=== PATIENT | female | born 1990 | race Caucasian/White ===

== ENCOUNTER 2021-06-23 02:16 | Emergency (ER) | payer MEDICAID ==
[~2021-06-23] VITALS: Ht 157.5 cm; Wt 97.5 kg
--- NOTE | 2021-06-23 02:45 | NUR ---
ULTRASOUND PAGED [phone]
--- NOTE | 2021-06-23 02:49 | NUR ---
ULTRASOUND AT BEDSIDE
[2021-06-23 02:50] LABS: CLARITY,URINE SLIGHTLY CLOUDY (Clear); COLOR,URINE YELLOW (Yellow); GLUCOSE, URINE NEGATIVE (Neg); KETONES,URINE NEGATIVE (Neg); LEUKOCYTE ESTERASE ,URINE TRACE (Neg); NITRITES, URINE NEGATIVE (Neg); OCCULT BLOOD,URINE LARGE (Neg); PROTEIN,URINE NEGATIVE (Neg); UROBILINOGEN,URINE 0.2 E.U/dL (0.2-1.0)
[2021-06-23 02:51] LABS: UA COLLECTION TYPE CLN CATCH MIDSTREAM
[2021-06-23 02:55] LABS: BASOPHILS # (AUTO) 0.1 X10'3 (0-0.2); BASOPHILS % (AUTO) 1.1 % (0-1); EOSINOPHILS # (AUTO) 0.4 X10'3 (0-0.9); EOSINOPHILS % (AUTO) 4.6 % (0-6); HEMATOCRIT 43.7 % (35.0-45.0); HEMOGLOBIN 14.9 g/dl (12.0-16.0); LYMPHOCYTES # (AUTO) 3.1 X10'3 (1.1-4.8); LYMPHOCYTES % (AUTO) 31.9 % (21-51); MEAN CORPUSCULAR HEMOGLOBIN 29.7 PG (27.0-31.0); MEAN CORPUSCULAR VOLUME 87.5 FL (78-98); MEAN PLATELET VOLUME 8.3 FL (7.4-10.4); MONOCYTES # (AUTO) 0.7 X10'3 (0-0.9); MONOCYTES % (AUTO) 7.7 % (2-12); NEUTROPHILS # (AUTO) 5.3 X10'3 (1.8-7.7); NEUTROPHILS % (AUTO) 54.7 % (42-75); PLATELET COUNT 293 X10'3 (140-440); RED CELL DISTRIBUTION WIDTH 14.3 % (11.5-14.5); WHITE BLOOD COUNT 9.7 X10'3 (4.5-11.0)
[2021-06-23 03:10] LABS: ALANINE AMINOTRANSFERASE 31 U/L (12-78); ALKALINE PHOSPHATASE 88 IU/L (46-116); ANION GAP 11 (8-16); ASPARTATE AMINO TRANSFERASE 18 U/L (10-37); BILIRUBIN,DIRECT 0.1 MG/DL (0-0.3); BILIRUBIN,TOTAL 0.3 MG/DL (0.1-1.0); BLOOD UREA NITROGEN 22 MG/DL (7-18); BUN/CREATININE RATIO 26.2 (6.6-38.0); CALCIUM 9.3 MG/DL (8.5-10.1); CHLORIDE 103 MMOL/L (99-107); CREATININE 0.84 MG/DL (0.40-0.90); GLUCOSE 123 MG/DL (70-104); LIPASE 226 U/L (73-393); POTASSIUM 3.6 MMOL/L (3.5-5.1); SODIUM 139 MMOL/L (135-145); TOTAL CARBON DIOXIDE 24.6 MMOL/L (24-32); TOTAL PROTEIN 7.9 G/DL (6.4-8.2); eGFR 80 ML/MIN
--- NOTE | 2021-06-23 03:11 | NUR ---
Patient with US
[2021-06-23 03:19] LABS: AMORPHOUS URATES 2+; BACTERIA,URINE 2+ /HPF (Neg); MUCUS STRANDS FEW /LPF (Neg); SQUAMOUS EPITHELIAL CELL,UR MODERATE /LPF (FEW)
[2021-06-23] MEDS ORDERED: NITR100C6 PO (03:27)
[2021-06-23] MEDS ORDERED: nitrofuran/nitrofuran macrocrysal 100 MG capsule PO ONE (03:30)
[2021-06-23 03:31] LABS: URINE HCG NEGATIVE (NEG)
[2021-06-23 03:44] VITALS: BP 133/65
== END 2021-06-23 03:49 | disposition home or self-care (01) ==
LOC: ER 02:17
DX: K80.20 Calculus of gallbladder without cholecystitis without obstruction (principal); N39.0 Urinary tract infection, site not specified; R10.11 Right upper quadrant pain; R11.2 Nausea with vomiting, unspecified; G89.29 Other chronic pain; Z79.899 Other long term (current) drug therapy
CPT/HCPCS: 36415; 76700; 80048; 80076; 81001; 81025; 83690; 85025; 99284

== ENCOUNTER 2021-09-21 05:18 | Day surgery (SDC) | payer BC ==
[2021-09-13 16:25] LABS: BASOPHILS # (AUTO) 0.1 X10'3 (0-0.2); BASOPHILS % (AUTO) 0.8 % (0-1); EOSINOPHILS % (AUTO) 8.8 % (0-6); LYMPHOCYTES # (AUTO) 3.3 X10'3 (1.1-4.8); LYMPHOCYTES % (AUTO) 29.2 % (21-51); MEAN CORPUSCULAR HEMOGLOBIN 29.4 PG (27.0-31.0); MEAN CORPUSCULAR HGB CONC 33.7 g/dL (33.0-36.5); MEAN CORPUSCULAR VOLUME 87.2 FL (78-98); MEAN PLATELET VOLUME 8.2 FL (7.4-10.4); MONOCYTES # (AUTO) 0.7 X10'3 (0-0.9); MONOCYTES % (AUTO) 5.7 % (2-12); NEUTROPHILS # (AUTO) 6.3 X10'3 (1.8-7.7); NEUTROPHILS % (AUTO) 55.5 % (42-75); PRE OP HEMATOCRIT 44.1 % (35.0-45.0); PRE OP HEMOGLOBIN 14.9 g/dL (12.0-16.0); PRE OP PLATELET COUNT 274 X10'3 (140-440); RED BLOOD COUNT 5.06 X10'6 (4.20-5.60); RED CELL DISTRIBUTION WIDTH 13.7 % (11.5-14.5)
[2021-09-13 16:44] LABS: ALKALINE PHOSPHATASE 88 IU/L (46-116); BLOOD UREA NITROGEN 11 MG/DL (7-18); BUN/CREATININE RATIO 14.3 (6.6-38.0); CALCIUM 9.3 MG/DL (8.5-10.1); CHLORIDE 105 MMOL/L (99-107); CREATININE 0.77 MG/DL (0.40-0.90); PRE OP ALT 29 U/L (30-65); PRE OP ANION GAP 11 (8-16); PRE OP AST 20 U/L (10-37); PRE OP BILIRUB, TOTAL 0.4 MG/DL (0.0-1.0); PRE OP GLUCOSE 91 MG/DL (70-104); PRE OP SODIUM 141 MMOL/L (135-145); eGFR 89 ML/MIN
[2021-09-13 16:53] LABS: HCG SERUM QL NEGATIVE
[~2021-09-21] VITALS: Ht 157.5 cm; Wt 92.8 kg
[2021-09-21] VITALS (8 sets, daily range): BP systolic 118–195; BP diastolic 80–113
[~2021-09-21 05:18] MED LIST: PREN-124 PO; cefazolin/dext.iso 2gm/50ml IV ONE; famotidine 20mg tablet PO ONE; ringers solution, lacted 1,000 ML IV SCH
[2021-09-21] MEDS ORDERED: INDOCYANINE GREEN 25 MG/10 ML VIAL IV ONE (05:30)
[2021-09-21] MEDS ORDERED: famotidine 20mg tablet PO ONE (05:30)
[2021-09-21] MEDS ORDERED: cefazolin/dext.iso 2gm/50ml IV ONE (05:30)
[2021-09-21] MEDS ORDERED: LIDOcaine 1% (10mg/ml)w/preservative inj. 20ml MDV ONE (06:42)
[2021-09-21] MEDS ORDERED: BUPIVAcaine 0.5% inj/PF 30 ML ONE (06:43)
[2021-09-21] MEDS ORDERED: ringers solution, lacted 1,000 ML IV SCH (07:20)
[2021-09-21] MEDS ORDERED: hydrALAZINE 20mg/ml inj. IV PRN (07:20)
[2021-09-21] MEDS ORDERED: meperidine/PF 25mg/ml syringe IV PRN ×3 (07:20)
[2021-09-21] MEDS ORDERED: labetalol 20mg/4ml (5mg/ml) syringe IV PRN (07:20)
[2021-09-21] MEDS ORDERED: morphine 2 MG/ML inj. syringe IV PRN (07:20)
[2021-09-21] MEDS ORDERED: proCHLORperazine 10 MG/2 ml inj IV PRN (07:20)
[2021-09-21] MEDS ORDERED: morphine 4 MG/ML inj SYRINge IV PRN (07:20)
[2021-09-21] MEDS ORDERED: ondansetron/PF 4mg/2ml inj IV PRN (07:20)
[2021-09-21] MEDS ORDERED: acetaminophen 1,000mg/100ml IV 100 ML IV PRN (07:20)
[2021-09-21] MEDS ORDERED: midazolam 1 mg/ML 2ml injection ONE (07:23)
[2021-09-21] MEDS ORDERED: fentaNYL /PF 50mcg/ml 5ml ampule ONE (07:23)
[2021-09-21] MEDS ORDERED: ondansetron/PF 4mg/2ml inj ONE (07:43)
[2021-09-21] MEDS ORDERED: propofol inj 20 ML IV ONE ×2 (07:43→08:30)
[2021-09-21] MEDS ORDERED: rocuronium 10mg/ml inj IV ONE (07:43)
[2021-09-21] MEDS ORDERED: LIDOcaine 2% (20mg/ml) 5ml vial ONE (07:43)
[2021-09-21] MEDS ORDERED: neostigmine methylsulfate 1 MG/ML 10ml vial ONE (08:19)
[2021-09-21] MEDS ORDERED: glycopyrrolate 0.2mg/ml inj ONE (08:19)
--- NOTE | 2021-09-21 08:35 | NUR ---
Received from OR via , accompanied by Anesthesiologist DR CHRISTINA and report given by Anesthesiolgist. AWAKE AND C/O PAIN AND NAUSEA. VITALS STABLE. DRESSINGS DI. ABD SOFT.
[2021-09-21] MEDS ORDERED: HYDROcodone/acetaminophen 5mg/325mg tablet PO PRN ×2 (08:45)
--- NOTE | 2021-09-21 09:45 | NUR ---
AWAKE AND ORIENTED. VITALS STABLE. DRESSINGS DI. FILIPPO PAIN. HOME WITH HER SPOUSE AT THIS TIME.
== END 2021-09-21 06:45 | disposition home or self-care (01) ==
LOC: PAS 05:18
PROVIDERS: ATTEND Surgery
DX: K80.10 Calculus of gallbladder with chronic cholecystitis without obstruction (principal); J45.909 Unspecified asthma, uncomplicated; E66.9 Obesity, unspecified; Z68.36 Body mass index [BMI] 36.0-36.9, adult; Z20.822 Contact with and (suspected) exposure to COVID-19; Z72.89 Other problems related to lifestyle; Z98.890 Other specified postprocedural states; Z79.899 Other long term (current) drug therapy; Z83.3 Family history of diabetes mellitus; Z82.49 Family history of ischemic heart disease and other diseases of the circulatory system
CPT/HCPCS: 36415; 47563; 80053; 82948; 84703; 85025; 87635; C9803; J2175; J2250; J2405; J2704; J2710; J3010; J3490; J7030; J7120; S0020; S2900; Z7506; Z7508; Z7512; A4215; A4618; A7000